=== PATIENT | female | born 1985 | race Hispanic/Latino ===

== ENCOUNTER 2018-11-07 15:34 | Emergency (ER) | payer OTHER ==
--- NOTE | 2018-11-07 16:47 | ER ---
Nurse's Notes [facility] Name: Harriett Scanlon Age: 33 yrs Sex: Female : 1985 Arrival Date: 11/07/2018 Time: 15:38 Bed 13 Private MD: Diagnosis: Acute upper respiratory infection, unspecified Presentation: 11/07 15:45 Presenting complaint: Patient states: fever and cough that began Wednesday. Pt also aa5 reports upper abd pain with cough. 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 Transition of care: patient was not received from another setting of care. Onset of symptoms was October 2018. Risk Assessment: Do you want to hurt yourself or someone else? Patient reports no desire to harm self or others. Initial Sepsis Screen: Does the patient meet any 2 criteria? No. Patient's initial sepsis screen is negative. Does the patient have a suspected source of infection? No. Patient's initial sepsis screen is negative. Care prior to arrival: None. 15:45 Method Of Arrival: Ambulatory aa5 15:45 Acuity: SIGRID 4 aa5 Triage Assessment: 16:15 General: Appears in no apparent distress. Behavior is calm, cooperative. ls4 16:15 Neuro: No deficits noted. Cardiovascular: No deficits noted. Respiratory: No deficits ls4 noted. GI: No deficits noted. : No deficits noted. 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 - Social history:: Smoking status: Patient/guardian denies using tobacco. - Ebola Screening: : No symptoms or risks identified at this time. Screenin:20 Abuse screen: Denies threats or abuse. Denies injuries from another. Nutritional ls4 screening: No deficits noted. Tuberculosis screening: No symptoms or risk factors identified. Fall Risk None identified. Assessment: 16:20 Pain: Denies pain. ls4 Vital Signs: 15:47 BP 112 / 78; Pulse 101; Resp 18 S; Temp 97.5(TE); Pulse Ox 99% on R/A; Weight 90.72 kg aa5 (R); Height 5 ft. 4 in. (162.56 cm) (R); Pain 0/10; 15:47 Body Mass Index 34.33 (90.72 kg, 162.56 cm) aa5 ED Course: 15:38 Patient arrived in ED. as 15:45 Arm band placed on. aa5 15:47 Triage completed. aa5 15:49 Edelmira Pedraza FNP-C is [facility]. kb 15:49 Tomi Nash MD is Attending Physician. kb 15:54 Giselle Medina, RN is Primary Nurse. ls4 16:20 Patient has correct armband on for positive identification. Call light in reach. Side ls4 rails up X 1. 16:20 No provider procedures requiring assistance completed. Patient did not have IV access ls4 during this emergency room visit. Administered Medications: No medications were administered Outcome: 16:46 Discharge ordered by MD. kb 17:02 Condition: stable ls4 17:02 Discharged to home ambulatory. ls4 17:02 Discharge instructions given to patient. 18:15 Patient left the ED. ls4 Signatures: Edelmira Pedraza FNP-C FNP-Ckb Martinez, Amelia as Sheela Guerrero, RN RN aa5 Giselle Medina, RN RN ls4
--- NOTE | 2018-11-07 16:48 | EDPHYS ---
Physician Documentation [facility] Name: Harriett Scanlon Age: 33 yrs Sex: Female : 1985 Arrival Date: 11/07/2018 Time: 15:38 Bed 13 Private MD: ED Physician Tomi Nash HPI: 11/07 16:12 This 33 yrs old Female presents to ER via Ambulatory with complaints of Flu kb Symptoms. 16:12 The patient or guardian reports cough, that is intermittent, described as mild, with no kb sputum. The patient or guardian reports flu symptoms, low-grade fever, myalgias. Onset: The symptoms/episode began/occurred 3 day(s) ago. Severity of symptoms: At their worst the symptoms were moderate, in the emergency department the symptoms are unchanged. Modifying factors: The symptoms are alleviated by nothing, the symptoms are aggravated by nothing. Associated signs and symptoms: Pertinent positives: fever, Pertinent negatives: chest pain, diarrhea, ear ache, nausea, rhinorrhea, sore throat, vomiting. The patient has not experienced similar symptoms in the past. The patient has not recently seen a physician. 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 - Social history:: Smoking status: Patient/guardian denies using tobacco. - Ebola Screening: : No symptoms or risks identified at this time. ROS: 16:11 ENT: Negative for injury, pain, and discharge, Neck: Negative for injury, pain, and kb swelling, Cardiovascular: Negative for chest pain, palpitations, and edema, Abdomen/GI: Negative for abdominal pain, nausea, vomiting, diarrhea, and constipation, Back: Negative for injury and pain, MS/Extremity: Negative for injury and deformity, Skin: Negative for injury, rash, and discoloration, Neuro: Negative for headache, weakness, numbness, tingling, and seizure. 16:11 Constitutional: Positive for fever, Negative for body aches, chills, fatigue, malaise, poor PO intake, weight loss. 16:11 Respiratory: Positive for cough, Negative for dyspnea on exertion, hemoptysis, orthopnea, pleurisy, shortness of breath, sputum production, wheezing. Exam: 16:11 Constitutional: This is a well developed, well nourished patient who is awake, alert, kb and in no acute distress. Head/Face: Normocephalic, atraumatic. ENT: Nares patent. No nasal discharge, no septal abnormalities noted. Tympanic membranes are normal and external auditory canals are clear. Oropharynx with no redness, swelling, or masses, exudates, or evidence of obstruction, uvula midline. Mucous membranes moist. Neck: Trachea midline, no thyromegaly or masses palpated, and no cervical lymphadenopathy. Supple, full range of motion without nuchal rigidity, or vertebral point tenderness. No Meningismus. Chest/axilla: Normal chest wall appearance and motion. Nontender with no deformity. No lesions are appreciated. Cardiovascular: Regular rate and rhythm with a normal S1 and S2. No gallops, murmurs, or rubs. Normal PMI, no JVD. No pulse deficits. Respiratory: Lungs have equal breath sounds bilaterally, clear to auscultation and percussion. No rales, rhonchi or wheezes noted. No increased work of breathing, no retractions or nasal flaring. Abdomen/GI: Soft, non-tender, with normal bowel sounds. No distension or tympany. No guarding or rebound. No evidence of tenderness throughout. Skin: Warm, dry with normal turgor. Normal color with no rashes, no lesions, and no evidence of cellulitis. MS/ Extremity: Pulses equal, no cyanosis. Neurovascular intact. Full, normal range of motion. Neuro: Awake and alert, GCS 15, oriented to person, place, time, and situation. Cranial nerves II-XII grossly intact. Motor strength 5/5 in all extremities. Sensory grossly intact. Cerebellar exam normal. Normal gait. Vital Signs: 15:47 BP 112 / 78; Pulse 101; Resp 18 S; Temp 97.5(TE); Pulse Ox 99% on R/A; Weight 90.72 kg aa5 (R); Height 5 ft. 4 in. (162.56 cm) (R); Pain 0/10; 15:47 Body Mass Index 34.33 (90.72 kg, 162.56 cm) aa5 MDM: 15:51 Patient medically screened. kb 16:11 Data reviewed: vital signs, nurses notes. Data interpreted: Pulse oximetry: on room air kb is 99 %. Interpretation: normal. 16:46 Counseling: I had a detailed discussion with the patient and/or guardian regarding: the kb historical points, exam findings, and any diagnostic results supporting the discharge/admit diagnosis, lab results, the need for outpatient follow up, a family practitioner, to return to the emergency department if symptoms worsen or persist or if there are any questions or concerns that arise at home. 11/07 15:50 Order name: Flu; Complete Time: 16:45 kb Administered Medications: No medications were administered Disposition: 11/08 07:23 Co-signature as Attending Physician, Tomi Nash MD I agree with the assessment and [facility] plan of care. Disposition: 11/07/18 16:46 Discharged to Home. Impression: Acute upper respiratory infection, unspecified. - Condition is Stable. - Discharge Instructions: Upper Respiratory Infection, Adult, [id number], Viral Respiratory Infection, [id number]. - Medication Reconciliation Form, Thank You Letter, Antibiotic Education, Prescription Opioid Use form. - Follow up: Emergency Department; When: As needed; Reason: Worsening of condition. Follow up: Private Physician; When: 2 - 3 days; Reason: Recheck today's complaints, Continuance of care, Re-evaluation by your physician. Signatures: Dispatcher [employer] EDNY Edelmira Pedraza, PIT SHOVEL OPERATOR-C PIT SHOVEL OPERATOR-Ckb Tomi Nash MD MD cha Calderon, Audri RN RN aa5 Giselle Medina RN RN ls4 Corrections: (The following items were deleted from the chart) 11/07 18:15 16:46 11/07/2018 16:46 Discharged to Home. Impression: Acute upper respiratory ls4 infection, unspecified. Condition is Stable. Forms are Medication Reconciliation Form, Thank You Letter, Antibiotic Education, Prescription Opioid Use. Follow up: Emergency Department; When: As needed; Reason: Worsening of condition. Follow up: Private Physician; When: 2 - 3 days; Reason: Recheck today's complaints, Continuance of care, Re-evaluation by your physician. kb
== END 2018-11-07 18:15 | disposition home or self-care (01) ==
LOC: ER 15:34
DX: J06.9 Acute upper respiratory infection, unspecified (principal)
CPT/HCPCS: 87804; 99281

== ENCOUNTER 2019-04-20 09:58 | Emergency (ER) | payer OTHER ==
--- OUTSIDE RECORDS SUMMARY | 2019-04-20 10:01 | XMS REPORT ---
:1985 [facility] [address] Edward [address] [place] [id number] Care Team Providers Name Role Phone Unavailable Unavailable Unavailable Problems This patient has no known problems. Allergies, Adverse Reactions, Alerts This patient has no known allergies or adverse reactions. Medications This patient has no known medications. Encounters Start End Encounter Admission Attending Care Care Encounter Date/Time Date/Time Type Type Clinicians Facility Department ID 2019-04-04 Inpatient [facility] [id number] 00:00:00 2019-04-03 Inpatient [facility] [id number] 00:00:00 2019-02-24 Inpatient [facility] [id number] 00:00:00 2019-02-24 Inpatient [facility] [id number] 00:00:00 2018-12-21 Inpatient [facility] [id number] 00:00:00 2018-12-21 Inpatient [facility] [id number] 00:00:00 2019-05-19 2019-05-19 Outpatient [facility] [id number] 00:00:00 00:00:00 2019-04-04 2019-04-04 Outpatient [facility] [id number] 06:30:00 06:30:00 2019-03-20 2019-03-20 Outpatient [facility] [id number] 00:00:00 00:00:00 2019-03-02 2019-03-02 Outpatient [facility] [id number] 14:00:09 14:00:09 2019-03-02 2019-03-02 Outpatient [facility] [id number] 12:05:29 12:05:29 2019-03-02 2019-03-02 Outpatient [facility] [id number] 09:56:13 09:56:13 2019-03-02 2019-03-02 Outpatient [facility] [id number] 00:00:00 00:00:00 2019-02-24 2019-02-24 Outpatient [facility] [id number] 10:53:15 10:53:15 2019-01-31 2019-01-31 Outpatient [facility] [id number] 00:00:00 00:00:00 2018-12-29 2018-12-29 Outpatient [facility] [id number] 00:00:00 00:00:00 2018-12-28 2018-12-28 Outpatient [facility] [id number] 13:50:57 13:50:57 2018-12-28 2018-12-28 Outpatient [facility] [id number] 11:14:20 11:14:20 2018-12-26 2018-12-26 Outpatient [facility] [id number] 13:51:08 13:51:08 2018-12-23 2018-12-23 Outpatient [facility] [id number] 00:00:00 00:00:00 2018-12-21 2018-12-21 Inpatient [facility] [id number] 19:21:41 19:21:41 2018-12-16 2018-12-16 Outpatient [facility] [id number] 10:06:45 10:06:45 2018-12-09 2018-12-09 Outpatient [facility] [id number] 09:14:55 09:14:55 2018-11-25 2018-11-25 Outpatient [facility] [id number] 07:59:00 07:59:00 2018-11-24 2018-11-24 Outpatient [facility] [id number] 12:12:36 12:12:36
[2019-04-20 12:54] LABS: Absolute Lymphocytes (CBC) 2.7 K/uL (0.7-4.9); Basophils % 0.8 % (0-1.3); Hematocrit 42.4 % (36.0-45.0); Lymphocytes % 32.1 % (15.3-44.8); MPV 8.5 fL (7.6-11.3); RBC Red Blood Cell Count 4.93 M/uL (3.86-4.86)
[2019-04-20 12:56] LABS: Potassium 3.7 mmol/L (3.5-5.1)
[2019-04-20 13:10] LABS: Urine Blood NEGATIVE (NEG); Urine Glucose NEGATIVE (NEG); Urine Protein NEGATIVE (NEG); Urine Specific Gravity 1.015 (1.005-1.030)
--- NOTE | 2019-04-20 14:38 | ER ---
Nurse's Notes [facility] Name: Harriett Scanlon Age: 33 yrs Sex: Female : 1985 Arrival Date: 04/20/2019 Time: 10:02 Bed 30 Private MD: Diagnosis: Elevated Blood Pressure;Edema, unspecified Presentation: 04/20 10:24 Presenting complaint: Patient states: "I haven't been feeling good and for the last 4 aa5 days my blood pressure has been high". Pt states "I look swollen and feel swollen". Pt reports highest BP reading was 150/100. Pt states "I had my fallopian tubes removed 2 weeks ago and I have a 4 month old and I had preeclampsia". Transition of care: patient was not received from another setting of care. Onset of symptoms was March 2019. Risk Assessment: Do you want to hurt yourself or someone else? Patient reports no desire to harm self or others. Initial Sepsis Screen: Does the patient meet any 2 criteria? No. Patient's initial sepsis screen is negative. Does the patient have a suspected source of infection? No. Patient's initial sepsis screen is negative. Care prior to arrival: None. 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 - Social history:: Smoking status: Patient/guardian denies using tobacco. - Ebola Screening: : No symptoms or risks identified at this time. Screenin:04 Abuse screen: Denies threats or abuse. Denies injuries from another. Nutritional mg2 screening: No deficits noted. Tuberculosis screening: No symptoms or risk factors identified. 12:33 Fall Risk IV access (20 points). mg2 Assessment: 12:32 General: Appears in no apparent distress. comfortable, Behavior is calm, cooperative. mg2 Pain: Denies pain. Neuro: Level of Consciousness is awake, alert, obeys commands, Oriented to person, place, time, situation. Cardiovascular: Capillary refill < 3 seconds Patient's skin is warm and dry. Respiratory: Airway is patent Respiratory effort is even, unlabored, Respiratory pattern is regular, symmetrical. GI: No signs and/or symptoms were reported involving the gastrointestinal system. : No signs and/or symptoms were reported regarding the genitourinary system. EENT: No signs and/or symptoms were reported regarding the EENT system. Derm: Skin is intact, is healthy with good turgor, Skin is pink, warm \\T\\ dry. normal. Musculoskeletal: Reports swollen legs. 12:45 Reassessment: patient sent to us via wheelchair. mg2 13:31 Reassessment: patient still in us. mg2 Vital Signs: 10:28 BP 142 / 98; Pulse 66; Resp 16 S; Temp 97.8(TE); Pulse Ox 96% on R/A; Weight 83.01 kg aa5 (R); Height 5 ft. 3 in. (160.02 cm) (R); Pain 0/10; 14:31 BP 132 / 95; Pulse 75; Resp 18; Pulse Ox 100% on R/A; mg2 15:00 BP 119 / 90; Pulse 75; Resp 18; Temp 98; Pulse Ox 100% on R/A; Pain 0/10; mg2 10:28 Body Mass Index 32.42 (83.01 kg, 160.02 cm) aa5 ED Course: 10:02 Patient arrived in ED. cl3 10:24 Arm band placed on. aa5 10:27 Triage completed. aa5 11:54 Donta Reeves PA is PHCP. jmm 11:54 Elpidio Dinero MD is Attending Physician. jmm 11:59 Surendra Werner, KRISTIN is Primary Nurse. mg2 12:04 Patient has correct armband on for positive identification. Door closed. mg2 12:30 Initial lab(s) drawn, by me, sent to lab. Inserted saline lock: 22 gauge in right lt1 antecubital area, using aseptic technique. 12:33 No provider procedures requiring assistance completed. mg2 13:00 US Extremity Venous W Compression Paul In Process Unspecified. EDMS 15:01 IV discontinued, intact, bleeding controlled, No redness/swelling at site. Pressure mg2 dressing applied. Administered Medications: No medications were administered Outcome: 14:37 Discharge ordered by MD. jmm 15:01 Discharged to home ambulatory. mg2 15:01 Condition: stable 15:01 Discharge instructions given to patient, Instructed on discharge instructions, follow up and referral plans. Demonstrated understanding of instructions, follow-up care. 15:01 Patient left the ED. mg2 Signatures: Dispatcher [employer] EDMS Donta Reeves PA PA jmm Calderon, Audri, RN RN aa5 Surendra Werner RN RN mg2 Maria C, Shasha 1 Yudith Dominguez 3
--- NOTE | 2019-04-20 14:38 | EDPHYS ---
Physician Documentation [facility] Name: Harriett Scanlon Age: 33 yrs Sex: Female : 1985 Arrival Date: 04/20/2019 Time: 10:02 Bed 30 Private MD: ED Physician Elpidio Dinero HPI: 04/20 12:03 This 33 yrs old Female presents to ER via Ambulatory with complaints of High jmm Blood Pressure. 12:03 Onset: The symptoms/episode began/occurred gradually, 1 week(s) ago. Associated signs jmm and symptoms: Pertinent positives: leg swelling. This is a 32 year old female 2 weeks s/p tubal ligation that presents to the ED with complaints of elevated blood pressure, swelling to her legs, face, and forearms. Denies chest pain, denies shortness of breath. . 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 - Social history:: Smoking status: Patient/guardian denies using tobacco. - Ebola Screening: : No symptoms or risks identified at this time. ROS: 12:03 Constitutional: Negative for fever, chills, and weight loss, Cardiovascular: Negative jmm for chest pain, palpitations, and edema, Respiratory: Negative for shortness of breath, cough, wheezing, and pleuritic chest pain. 12:03 MS/extremity: Positive for swelling. 12:03 All other systems are negative. Exam: 12:03 Constitutional: This is a well developed, well nourished patient who is awake, alert, jmm and in no acute distress. Head/Face: atraumatic. Eyes: EOMI, no conjunctival erythema appreciated ENT: Moist Mucus Membranes Neck: Trachea midline, Supple Chest/axilla: Normal chest wall appearance and motion. Cardiovascular: Regular rate and rhythm. No edema appreciated Respiratory: Normal respirations, no respiratory distress appreciated Abdomen/GI: Non distended, soft Skin: General appearance color normal MS/ Extremity: Moves all extremities, no obvious deformities appreciated, no edema noted to the lower extremities Neuro: Awake and alert, normal gait Psych: Behavior is normal, Mood is normal, Patient is cooperative and pleasant Vital Signs: 10:28 BP 142 / 98; Pulse 66; Resp 16 S; Temp 97.8(TE); Pulse Ox 96% on R/A; Weight 83.01 kg aa5 (R); Height 5 ft. 3 in. (160.02 cm) (R); Pain 0/10; 14:31 BP 132 / 95; Pulse 75; Resp 18; Pulse Ox 100% on R/A; mg2 15:00 BP 119 / 90; Pulse 75; Resp 18; Temp 98; Pulse Ox 100% on R/A; Pain 0/10; mg2 10:28 Body Mass Index 32.42 (83.01 kg, 160.02 cm) aa5 MDM: 12:03 Patient medically screened. [facility] 14:36 Data reviewed: vital signs, nurses notes. Counseling: I had a detailed discussion with anatoliy the patient and/or guardian regarding: the historical points, exam findings, and any diagnostic results supporting the discharge/admit diagnosis, the presence of at least one elevated blood pressure reading (>120/80) during this emergency department visit, lab results, radiology results, to return to the emergency department if symptoms worsen or persist or if there are any questions or concerns that arise at home. ED course: Patient is alert and non toxic in appearance in the ED. NO CP no SOB. US negative for DVT. Labs unremarkable. Patient advised to follow up with pcp for htn management and otherwise given strict return precautions. patient understood and agrees with the plan of care. . 04/20 12:07 Order name: CBC with Diff; Complete Time: 14:13 [facility] 04/20 12:07 Order name: BMP; Complete Time: 14:13 [facility] 04/20 12:07 Order name: US Extremity Venous W Compression Paul; Complete Time: 15:00 [facility] 04/20 12:48 Order name: Urine Dipstick--Ancillary (enter results) 04/20 12:48 Order name: Urine --Ancillary (enter results); Complete Time: 14:13 04/20 12:48 Order name: Urine Dipstick-Ancillary; Complete Time: 14:13 [facility] 04/20 12:07 Order name: Urine Dipstick-Ancillary (obtain specimen); Complete Time: 12:30 anatoliy 04/20 12:07 Order name: Saline Lock; Complete Time: 12:30 [facility] Administered Medications: No medications were administered Disposition: 16:41 Co-signature as Attending Physician, Elpidio Dinero MD I agree with the assessment and [facility] plan of care. Disposition: 04/20/19 14:37 Discharged to Home. Impression: Elevated Blood Pressure, Edema, unspecified. - Condition is Stable. - Discharge Instructions: Edema, Hypertension. - Medication Reconciliation Form, Thank You Letter, Antibiotic Education, Prescription Opioid Use form. - Follow up: Private Physician; When: 2 - 3 days; Reason: Recheck today's complaints, Continuance of care, Re-evaluation by your physician. Signatures: Dispatcher [employer] EDOK Elpidio Dinero MD MD kdr Mickail, Joel, PA PA Sheela Storey, RN RN aa5 Surendra Werner RN RN mg2 Corrections: (The following items were deleted from the chart) 15:01 14:37 04/20/2019 14:37 Discharged to Home. Impression: Elevated Blood Pressure; Edema, mg2 unspecified. Condition is Stable. Forms are Medication Reconciliation Form, Thank You Letter, Antibiotic Education, Prescription Opioid Use. Follow up: Private Physician; When: 2 - 3 days; Reason: Recheck today's complaints, Continuance of care, Re-evaluation by your physician. [facility]
--- NOTE | 2019-04-20 14:44 | RAD REPORT ---
EXAM DESCRIPTION: US - Extrem Venous W Compress Paul - 04/20/2019 1:46 pm CLINICAL HISTORY: Bilateral leg pain and swelling COMPARISON: None. TECHNIQUE: Real-time sonographic evaluation of the bilateral lower extremity common femoral, superfi cial femoral, popliteal and posterior tibial veins was performed. FINDINGS: Normal compressibility, flow augmentation, phasic flow and spontaneous flow are identified in the left and right lower extremity common femoral, superficial femoral, popliteal and posterior t ibial veins. No intraluminal filling defects seen. IMPRESSION: No DVT in either lower extremity.
== END 2019-04-20 15:01 | disposition home or self-care (01) ==
LOC: ER 09:58
DX: R03.0 Elevated blood-pressure reading, without diagnosis of hypertension (principal); R60.9 Edema, unspecified
CPT/HCPCS: 36415; 80048; 81003; 81025; 85025; 93970; 99283